=== PATIENT | male | born 1960 | race Caucasian/White ===

== ENCOUNTER 2022-06-04 08:09 | Outpatient (CLI) | payer BC | END 2022-06-04 08:10 | disposition home or self-care (01) | LOC: TBSIIMAG 08:09 | PROVIDERS: ATTEND Urology | DX: R97.20 Elevated prostate specific antigen [PSA] (principal) | CPT/HCPCS: 72197 ==

== ENCOUNTER 2022-10-16 06:03 | Day surgery (SDC) | payer BC ==
[2022-10-06 13:13] VITALS: BMI 43.0
[2022-10-06 13:55] LABS: Prothrombin Time 10.7 sec (9.5-12.1)
[2022-10-06 14:08] LABS: Hematocrit 40.2 % (38.8-50.0); Hemoglobin 13.7 g/dL (13.5-17.5); Mean Corpuscular HGB CONC 34.1 g/dL (32.0-36.0); Mean Corpuscular Hemoglobin 31.6 pg (27.0-33.0); Mean Corpuscular Volume 92.8 fl (81.2-95.1); Platelet Count 296 10x3/uL (150-450); RBC Distribution Width 12.5 % (11.5-14.5); Red Blood Cell (RBC) Count 4.33 10x6/uL (4.32-5.72); White Blood Cell (WBC) Count 7.4 10x3/uL (3.5-10.5)
[2022-10-06 14:19] LABS: Anion Gap 16 mmol/L (10-20); BUN (Urea Nitrogen) 20 mg/dL (8.4-25.7); Calc. Creatinine Clearance 100 mL/min (70-130); Calcium 9.3 mg/dL (7.8-10.44); Carbon Dioxide 23 mmol/L (23-31); Chloride 104 mmol/L (98-107); Estimated GFR 58; Glucose 106 mg/dL (80-115); Potassium 4.9 mmol/L (3.5-5.1); Sodium 138 mmol/L (136-145)
[2022-10-16] MEDS ORDERED: Heparin 25,000 units/D5W 500 ML ONE (06:47)
[2022-10-16] MEDS ORDERED: Heparin 10,000 UNITS/ 10 ML VIAL ONE (06:47)
[2022-10-16] MEDS ORDERED: Protamine Sulfate 50 MG/5 ML VIAL ONE (06:47)
[2022-10-16] MEDS ORDERED: fentaNYL 50 mcg/mL 1 mL Vial ONE (07:33)
[2022-10-16] MEDS ORDERED: Rocuronium Bromide 10 MG/ML (10ML VIAL) ONE (08:02)
[2022-10-16] MEDS ORDERED: NEOSTIGMINE 3 MG/3 ML SYR 3 MG/3 ML SYRINGE ONE (08:02)
[2022-10-16] MEDS ORDERED: Glycopyrrolate 0.2 MG/ML 5 ML SYRINGE ONE (08:02)
[2022-10-16] MEDS ORDERED: PROPOFOL 200 MG/20 ML VIAL ONE (08:02)
[2022-10-16] MEDS ORDERED: Dexamethasone 20 MG/5 ML VIAL ONE (08:02)
[2022-10-16] MEDS ORDERED: PHENYLEPHRINE-NS 100 MCG/ML 10 ML SYRINGE ONE (08:02)
[2022-10-16] MEDS ORDERED: Ondansetron PF 4 MG/2 ML Vial ONE (08:02)
[2022-10-16] MEDS ORDERED: ePHEDrine Sulfate 50 MG/10 ML VIAL ONE (08:02)
[2022-10-16] MEDS ORDERED: Cyclobenzaprine 10 MG TAB ONE (11:16)
== END 2022-10-16 13:16 | disposition home or self-care (01) ==
LOC: SDC 06:03
PROVIDERS: ATTEND Internal Medicine Cardiovascular Disease
PROC: 02K83ZZ Map Conduction Mechanism, Percutaneous Approach (ICD-10-PCS; principal; 2022-10-16)
PROC: 02Q Heart and Great Vessels, Repair (ICD-10-PCS; principal; 2022-10-16)
DX: I48.0 Paroxysmal atrial fibrillation (principal)
CPT/HCPCS: 80048; 85027; 85347; 85610; 93005; 93010; 93312; 93656; 93657; C1732; C1759; C1760; C1894; C2630; J1100; J1644; J2405; J2704; J2720; J3010

== ENCOUNTER 2022-10-20 10:09 | Emergency (ER) | payer BC ==
[2022-10-20 11:15] LABS: #Basophils 0.1 thou/uL (0.0-0.2); #Eosinphils 0.2 thou/uL (0.0-0.7); #Monocytes 0.6 thou/uL (0.11-0.59); #Neutrophils 5.6 thou/uL (1.40-6.50); %Basophils 0.7 % (0.0-1.0); %Eosinophils 2.6 % (0.0-10.0); %Lymphocytes 23.8 % (21.0-51.0); %Monocytes 6.8 % (0.0-10.0); %Neutrophils 65.3 % (42.0-75.0); Hematocrit 40.6 % (42.0-52.0); Hemoglobin 13.9 g/dL (14.0-18.0); Mean Corpuscular HGB CONC 34.2 g/dL (32.0-36.0); Mean Corpuscular Hemoglobin 31.7 pg (27.0-31.0); Mean Corpuscular Volume 92.5 fl (78.0-98.0); Mean Platelet Volume 8.8 fL (7.4-10.4); Platelet Count 270 10x3/uL (130-400); RBC Distribution Width 12.6 % (11.5-14.5); Red Blood Cell (RBC) Count 4.39 mill/uL (4.70-6.10); White Blood Cell (WBC) Count 8.5 10x3/uL (4.8-10.8)
[2022-10-20 11:53] LABS: Troponin I 0.173 ng/mL (< 0.028)
[2022-10-20] MEDS ORDERED: Aspirin 325 MG TAB ONE (12:18)
[2022-10-20 13:25] LABS: ALT (SGPT) 31 U/L (8-55); AST (SGOT) 21 U/L (5-34); Albumin 4.1 g/dL (3.4-4.8); Alkaline Phosphatase 73 U/L (40-110); Anion Gap 11 mmol/L (10-20); BUN (Urea Nitrogen) 20 mg/dL (8.4-25.7); Bilirubin, Total 0.4 mg/dL (0.2-1.2); Calc. Creatinine Clearance 0 mL/min (70-130); Calcium 9.6 mg/dL (7.8-10.44); Carbon Dioxide 24 mmol/L (23-31); Chloride 104 mmol/L (98-107); Estimated GFR 64; Globulin 3.1 g/dL (2.4-3.5); Glucose 95 mg/dL (80-115); Potassium 4.2 mmol/L (3.5-5.1); Protein, Total 7.2 g/dL (5.8-8.1); Sodium 135 mmol/L (136-145)
[2022-10-20] MEDS ORDERED: Nitroglycerin 0.4 MG TAB 1 EACH ONE ×2 (13:31→13:32)
[2022-10-20 15:11] LABS: Troponin I 0.138 ng/mL (< 0.028)
== END 2022-10-20 16:26 | disposition home or self-care (01) ==
LOC: ERS 10:09
DX: R07.9 Chest pain, unspecified (principal); I10 Essential (primary) hypertension; E78.5 Hyperlipidemia, unspecified; I48.91 Unspecified atrial fibrillation; Z79.899 Other long term (current) drug therapy; Z79.01 Long term (current) use of anticoagulants; Z79.82 Long term (current) use of aspirin
CPT/HCPCS: 71045; 80053; 84484; 85025; 93005